=== PATIENT | male | born 1990 | race Caucasian/White ===

== ENCOUNTER → 2017-04-21 | Outpatient (CLI) | payer OTHER, BC ==
[~2017-04-21] MED LIST: CELEXA20 MG PO
--- NOTE | 2017-04-21 11:53 | RADIOLOGY REPORT PS360 ---
CHEST(2 VIEWS-NOT PORTABLE) HISTORY: RT RIB PAIN ORDERING PHYSICIAN: Mannie Guallpa MD PATIENT AGE: 26 years COMPARISON: None available FINDINGS: The cardiomediastinal silhouette and pulmonary vascularity are within normal limits. No lobar consolidation or collapse. There is blunting of the posterior costophrenic sulci on both sides suggesting small bilateral effusions. Mild lower thoracic scoliosis convex right. IMPRESSION: Small bilateral effusions otherwise negative chest
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
== END ==
LOC: RAD 11:24
DX: R07.81 Pleurodynia (principal)